=== PATIENT | male | born 1960 | race African-American/Black ===

== ENCOUNTER 2016-09-05 16:15 | Emergency (ER) | payer MEDICARE, MEDICAID ==
[2016-09-05 16:28] VITALS: BP 155/94
--- NOTE | 2016-09-05 17:10 | RAD ---
INDICATION: Progressive neck stiffness for 3 days. COMPARISON: None. TECHNIQUE: Multidetector CT images foramen magnum to lung apices without contrast. Multiplanar reformation. REPORT: Negative for cervical vertebral body or posterior element fracture at any level. Multilevel minimal vertebral endplate osteophytosis. Mild disc space narrowing at C5-C6. At C5-C6 dorsal disc osteophyte complex results in mild impression on the ventral margin of the thecal sac. Unremarkable paravertebral soft tissue contours. IMPRESSION: 1. Negative for traumatic cervical spine injury. 2. Mild degenerative spondylosis at C5-C6 resulting slight to mild central canal stenosis.
--- NOTE | 2016-09-05 17:36 | ED ---
I, Oh,Sonaina, scribed for Bala Lan MD on 09/05/16 at 1629 . Neck Pain - HPI Summary HPI Summary: This 56 y/o male presents to ED from Urgent care for gradual onset of neck stiffness since 3 days ago. Alleve doesn't give much relief. PMHx includes includes HTN and hypothyroidism. Negative recent flu-like symtpoms, sore throat , or fever. He denies any recent medication changes except for vitamin D supplement he recently started on. Primary care involves Dr. Zaidi. - History of Current Complaint Stated Complaint: NECK STIFFNESS Time Seen by Provider: 09/05/16 16:21 Hx Obtained From: Patient, Medical Records Onset/Duration Of Injury/Symptoms: Days Mechanism Of Injury: No Known Trauma Timing: Constant Onset/Duration: Gradual Onset Severity Initially: Mild Severity Currently: Moderate Location: Diffuse Character: Stiff Aggravating Factors: Nothing Alleviating Factors: Nothing Associated Signs & Symptoms: Positive: Negative - Allergies/Home Medications Allergies/Adverse Reactions: Allergies Allergy/AdvReac Type Severity Reaction Status Date / Time Lisinopril Allergy Unknown Verified 04/19/15 17:41 Reaction Details PMH/Surg Hx/FS Hx/Imm Hx Endocrine/Hematology History: Reports: Hx Thyroid Disease Cardiovascular History: Reports: Hx Hypertension - Family History Known Family History: Positive: Cardiac Disease - Social History Alcohol Use: Occasionally Hx Substance Use: No Substance Use Type: Reports: None Hx Tobacco Use: Yes Smoking Status (MU): Former Smoker Review of Systems Negative: Fever Positive: Other - neck pain Negative: Anxious, Depressed All Other Systems Reviewed And Are Negative: Yes Physical Exam Triage Information Reviewed: Yes Vital Signs On Initial Exam: Initial Vitals Temp Pulse Resp BP Pulse Ox 98 F 64 16 155/94 98 09/05/16 16:21 09/05/16 16:21 09/05/16 16:21 09/05/16 16:21 09/05/16 16:21 Vital Signs Reviewed: Yes Appearance: Positive: Well-Appearing, No Pain Distress Skin: Positive: Warm, Skin Color Reflects Adequate Perfusion, Dry Head/Face: Positive: Normal Head/Face Inspection Eyes: Positive: SOPHIA ENT: Negative: Other - negative retropharyngeal abscess Neck: Positive: Supple, Nontender, No Lymphadenopathy. Negative: Nuchal Rigidity, Enlarged Nodes @ Respiratory/Lung Sounds: Positive: Clear to Auscultation Musculoskeletal: Positive: Strength/ROM Intact Neurological: Positive: Sensory/Motor Intact, Alert, Oriented to Person Place, Time Psychiatric: Positive: Affect/Mood Appropriate AVPU Assessment: Alert Diagnostics - Vital Signs Vital Signs Temp Pulse Resp BP Pulse Ox 09/05/16 16:21 98 F 64 16 155/94 98 - Laboratory Lab Statement: Any lab studies that have been ordered have been reviewed, and results considered in the medical decision making process. - CT C-Spine CT Interpretation: No Acute Changes - 1. Negative for traumatic cervical spine injury. 2. Mild degenerative spondylosis at C5-C6 resulting slight to mild central canal stenosis. CT Interpretation Completed By: Radiologist Neck Course/Dx - Diagnoses Differential Dx/HQI/PQRI: Positive: Arthritis, Cervical Fracture, Dislocation, Sprain, Strain, Other - Primary concern for muscular sprain; however will CT for occult dislocation. Supple neck, no systemic symptoms or infectious findings with low concern for RPA, CL[place] SMITH, meningoencephalitis. 17:[address] results with the patient. When discussing his discharge instructions and prescriptions, he demanded valium while here and felt as if he deserved it because he showed up. He then told me that he is taking the public bus home and I told him it was unsafe to do so, but that if a ride showed up and could safely get him home, then I would be happy to give a dose here. He felt this was unreasonable; however, I told him it was for his safety. He cursed at me and felt that he deserved medication anyway. Provider Diagnoses: Sprain of cervical neck Discharge - Discharge Plan Condition: Stable Disposition: HOME Prescriptions: Diazepam TAB(*) [Valium TAB(*)] 10 mg PO Q8H PRN #5 tab MDD 3 PRN Reason: Muscle Spasm Patient Education Materials: Muscle Spasm (ED) Referrals: Tutu Zaidi MD [Primary Care Provider] - If Needed The documentation as recorded by the Jonathan urias Soohyun accurately reflects the service I personally performed and the decisions made by me, Bala Lan MD.
== END 2016-09-05 17:43 | disposition home or self-care (01) ==
LOC: ED 16:15
DX: M54.2 Cervicalgia (principal); Z87.891 Personal history of nicotine dependence; S13.9XXA Sprain of joints and ligaments of unspecified parts of neck, initial encounter; X58.XXXA Exposure to other specified factors, initial encounter; Y93.9 Activity, unspecified; Y92.9 Unspecified place or not applicable; Y99.9 Unspecified external cause status; Z86.79 Personal history of other diseases of the circulatory system
CPT/HCPCS: 72125; 99281

== ENCOUNTER 2019-06-21 11:10 | Emergency (ER) | payer MEDICARE, MEDICAID ==
[2019-06-21] MEDS ORDERED: Lidocaine PATCH 5%* 1 PATCH TRANSDERM ONE (14:06)
[2019-06-21] MEDS ORDERED: Diazepam TAB(*) 5 MG PO ONE (14:06)
--- NOTE | 2019-06-21 14:18 | ED ---
Neck Pain - HPI Summary HPI Summary: 59-year-old male presents with neck pain for the past 2 days. States that it feels like a stiffness to the area. He denies any fevers. No headache. No visual changes. No weakness. No numbness or tingling. no chest pain or SOB. had a cardiac test done today. Has no history of back or neck pain. Pain radiates to his shoulders. Pain is greatest on the left but is also present on the right. Has been taking Advil for his pain with limited improvement. no photophobia. no sore throat. no abdominal pain. no nausea or vomiting. - History of Current Complaint Chief Complaint: EDNeckComplaint Stated Complaint: NECK PAIN PER PT Time Seen by Provider: 06/21/19 13:48 Pain Intensity: 9 - Allergies/Home Medications Allergies/Adverse Reactions: Allergies Allergy/AdvReac Type Severity Reaction Status Date / Time lisinopril Allergy Unknown Verified 06/21/19 11:16 Reaction Details PMH/Surg Hx/FS Hx/Imm Hx Endocrine/Hematology History: Reports: Hx Thyroid Disease Cardiovascular History: Reports: Hx Angina, Hx Hypertension Infectious Disease History: No Infectious Disease History: Denies: Traveled Outside the [place] in Last 30 Days - Family History Known Family History: Positive: Cardiac Disease - Social History Alcohol Use: Weekly Hx Substance Use: No Substance Use Type: Reports: None Hx Tobacco Use: Yes Smoking Status (MU): Former Smoker Review of Systems Negative: Fever Negative: Chest Pain Negative: Shortness Of Breath Positive: Myalgia - neck pain All Other Systems Reviewed And Are Negative: Yes Physical Exam Triage Information Reviewed: Yes Vital Signs On Initial Exam: Initial Vitals Temp Pulse Resp BP Pulse Ox 97.8 F 66 14 148/86 98 06/21/19 11:14 06/21/19 11:14 06/21/19 11:14 06/21/19 11:14 06/21/19 11:14 Vital Signs Reviewed: Yes Appearance: Positive: Well-Appearing Skin: Positive: Warm, Dry Head/Face: Positive: Normal Head/Face Inspection Eyes: Positive: Normal, Conjunctiva Clear ENT: Positive: Pharynx normal Respiratory/Lung Sounds: Positive: Clear to Auscultation, Breath Sounds Present Cardiovascular: Positive: Normal, RRR Musculoskeletal: Positive: Limited @ - neck, Other - tenderness sides of neck, good pulses, sensation grossly intact Neurological: Positive: Normal Psychiatric: Positive: Normal Procedures - Sedation Patient Received Moderate/Deep Sedation with Procedure: No Diagnostics - Vital Signs Vital Signs Temp Pulse Resp BP Pulse Ox 06/21/19 13:10 98.0 F 61 16 135/80 98 06/21/19 11:14 97.8 F 66 14 148/86 98 - Laboratory Result Diagrams: 06/21/19 16:34 06/21/19 16:34 Lab Statement: Any lab studies that have been ordered have been reviewed, and results considered in the medical decision making process. - Radiology neck Radiology Interpretation Completed By: Radiologist Summary of Radiographic Findings: IMPRESSION: 1. STRAIGHTENING OF THE CERVICAL SPINE. 2. MILD TO MODERATE DEGENERATIVE DISC DISEASE. Re-Evaluation - Re-Evaluation First Eval Re-Evaluation Time: 15:45 Change: Unchanged Comment: no change after valium, will get lab work Second Eval Re-Evaluation Time: 17:07 Change: Improved Comment: feeling better Neck Course/Dx - Course Course Of Treatment: 59-year-old male presents with neck pain for the past 2 days. States that it feels a stiffness to the area. He denies any fevers. No headache. No visual changes. No weakness. No numbness or tingling. no chest pain or SOB. had a cardiac test done today. Has no history of back or neck pain. Pain radiates to his shoulders. Pain is greatest on the left but is also present on the right. Has been taking Advil for his pain. On exam tenderness greatest on sides of neck. No midline tenderness. Able to flex neck without difficulty. Has some pain with extension and rotation. Limited rotation due to pain. Neurovascular intact. X-ray shows degenerative changes. given Valium and pain unchanged. wbc normal. crp slightly elevated. vitals normal. gave norco and feeling better. will discharge with muscle relaxers and steriods. told follow up with primary. patient understand and agrees with plan. - Diagnoses Differential Dx/HQI/PQRI: Positive: Arthritis, Sprain, Strain Provider Diagnoses: Neck pain Discharge ED - Sign-Out/Discharge Documenting (check all that apply): Patient Departure - Discharge Plan Condition: Good Disposition: HOME Prescriptions: Cyclobenzaprine TAB* [Flexeril 10 MG TAB*] 10 mg PO TID PRN #15 tab PRN Reason: Pain - Moderate methylPREDNISolone [Medrol Dosepak 4 MG*] 4 mg PO .SEE KEVEN INSTRUCTION #1 packet Patient Education Materials: Neck Pain (ED) Referrals: Deysi Smart MD [Primary Care Provider] - Additional Instructions: Follow directions on package for Medrol pack Take muscle relaxers three times a day Use ibuprofen or Tylenol for pain every 6 hours ice/heat area, move as much as possible Follow up with primary within 5 days Return to ED if develop any new or worsening symptoms - Billing Disposition and Condition Condition: GOOD Disposition: Home - Attestation Statements Provider Attestation: I was available for consultation for this patient. I did not evaluate the patient or participate in any medical decision making or disposition decisions unless I am specifically named in the chart as having consulted on the patient. If I have consulted on the patient, please see my own ED note on the patient encounter. Davian Benjamin MD
[2019-06-21] MEDS ORDERED: HYDROcodone/ACETAMIN 5-325 MG* 1 TAB PO ONE (15:44)
[2019-06-21 16:47] LABS: ABS Basophils 0.1 10^3/ul (0-0.2); ABS Eosinophils 0.2 10^3/ul (0-0.6); ABS Lymphocytes 2.1 10^3/ul (1.0-4.8); ABS Monocytes 0.7 10^3/ul (0-0.8); Eosinophil % 2.9 %; Hematocrit 36 % (42-52); Hemoglobin 12.7 g/dL (14.0-18.0); Lymphocyte % 35.2 %; Mean Corpuscular HGB Conc 35 g/dL (31-36); Mean Corpuscular Hemoglobin 29 pg (27-31); Mean Corpuscular Volume 83 fL (80-94); Mean Platelet Volume 7.1 fL (7.4-10.4); Nucleated Red Blood Cells % 0.3; Platelet Count 251 10^3/uL (150-450); Red Blood Count 4.41 10^6 /uL (4.18-5.48); Red Cell Distribution Width 15 % (10-15)
[2019-06-21 17:04] LABS: Albumin 4.3 g/dL (3.2-5.2); Albumin/Globulin Ratio 1.4 (1-3); BUN/Creatinine Ratio 11.1 (8-20); C Reactive Protein 12.1 mg/L (<8.01); Calcium 9.6 mg/dL (8.6-10.3); EGFR African American 77.2 (>60); EGFR Non-African American 63.8 (>60); Globulin 3.1 g/dL (2-4); Potassium 3.9 mmol/L (3.5-5.0); Total Bilirubin 0.5 mg/dL (0.2-1.0); Total Protein 7.4 g/dL (6.4-8.9)
[2019-06-21 18:05] VITALS: BP 139/76
[2019-06-21] MEDS ORDERED: Lidocaine Patch REMOVE* 1 NOTE MISC SCH (21:00)
== END 2019-06-21 18:04 | disposition home or self-care (01) ==
LOC: ED 11:10
DX: M54.2 Cervicalgia (principal); E07.9 Disorder of thyroid, unspecified; I10 Essential (primary) hypertension; Z87.891 Personal history of nicotine dependence; Z88.8 Allergy status to other drugs, medicaments and biological substances; R94.31 Abnormal electrocardiogram [ECG] [EKG]; G47.33 Obstructive sleep apnea (adult) (pediatric)
CPT/HCPCS: 36415; 72050; 80053; 85025; 86140; 99282; A9270-GY

== ENCOUNTER 2022-05-20 02:08 | Inpatient (IN) ==
[2022-05-20] MEDS ORDERED: Ondansetron 4 mg VIAL 2 MG/ML 2 ml VIAL IV ONE (02:30)
[2022-05-20] MEDS ORDERED: Lactated Ringers 1000 ml BAG 1,000 ML IV ONE ×2 (02:30→04:03)
[2022-05-20] MEDS ORDERED: Morphine 4 MG/ML VIAL (1 ml) IV ONE (02:55)
[2022-05-20 03:01] LABS: Hematocrit 50 % (42-52); Mean Corpuscular HGB Conc 32 g/dL (31-36); Mean Corpuscular Hemoglobin 28 pg (27-31); Mean Corpuscular Volume 85 fL (80-94); Red Blood Count 5.81 10^6 /uL (4.18-5.48); Red Cell Distribution Width 16 % (10-15); White Blood Count 7.1 10^3/uL (3.5-10.8)
[2022-05-20 03:02] LABS: ABS Lymphocytes 0.7 10^3/ul (1.0-4.8); ABS Monocytes 0.9 10^3/ul (0-0.8); ABS Neutrophils 5.4 10^3/ul (1.5-7.7); Lymphocyte % 10.4 %
[2022-05-20 03:42] LABS: Giant Platelets Present; Platelet Count 200 10^3/uL (150-450)
[2022-05-20 03:57] LABS: Albumin 5.3 g/dL (3.2-5.2); Albumin/Globulin Ratio 1.4 (1-3); Calcium 9.6 mg/dL (8.6-10.3); Globulin 3.9 g/dL (2-4); Magnesium 2.3 mg/dL (1.9-2.7); Total Bilirubin 0.8 mg/dL (0.2-1.0); Total Protein 9.2 g/dL (6.4-8.9); eGFR CKD-EPI 8.7 (>60)
[2022-05-20 04:18] LABS: High Sensitivity Troponin 1 Hr 7 pg/mL (<20)
[2022-05-20 04:22] LABS: Potassium 4.8 mmol/L (3.5-5.0)
[2022-05-20 04:26] LABS: Venous Bicarbonate HCO3 17.9 mmol/L (24-28)
[2022-05-20] MEDS ORDERED: NS 0.9% 1000 ml BAG 1,000 ML IV ONE (05:56)
[2022-05-20 06:24] LABS: Calcium 8.6 mg/dL (8.6-10.3)
[2022-05-20] MEDS: Sodium Citrate/Citric Acid LIQ 15 ML UDC PO SCH ×2 (15:14→20:47)
[2022-05-20 17:01] LABS: Urine Appearance Cloudy; Urine Bilirubin Negative (Negative); Urine Blood 3+ (Negative); Urine Color Yellow; Urine Glucose Negative (Negative); Urine Ketones Negative (Negative); Urine Nitrite Negative (Negative); Urine Protein 2+(100 mg/dL) (Negative); Urine Specific Gravity 1.013 (1.002-1.030); Urine Urobilinogen Negative (Negative)
[2022-05-20 17:13] LABS: Urine Bacteria Absent (Absent); Urine Red Blood Cell 3+(>10/hpf) (Absent); Urine White Blood Cell 1+(6-10/hpf) (Absent)
[2022-05-20 17:23] LABS: Venous Bicarbonate HCO3 18.7 mmol/L (24-28)
[2022-05-20 17:24] LABS: Albumin 4.3 g/dL (3.2-5.2); Albumin/Globulin Ratio 1.4 (1-3); Calcium 8.3 mg/dL (8.6-10.3); Potassium 4.5 mmol/L (3.5-5.0); Total Bilirubin 0.5 mg/dL (0.2-1.0); Total Protein 7.3 g/dL (6.4-8.9); eGFR CKD-EPI 15.2 (>60)
[2022-05-20] MEDS: NS 0.9% 1000 ml BAG 1,000 ML IV SCH (23:26)
[2022-05-21] MEDS: NS 0.9% 1000 ml BAG 1,000 ML IV SCH (05:26)
[2022-05-21 06:37] LABS: ABS Lymphocytes 1.2 10^3/ul (1.0-4.8); ABS Monocytes 0.6 10^3/ul (0-0.8); ABS Neutrophils 2.8 10^3/ul (1.5-7.7); Eosinophil % 0.1 %; Hematocrit 40 % (42-52); Hemoglobin 13.2 g/dL (14.0-18.0); Lymphocyte % 25.6 %; Mean Corpuscular HGB Conc 33 g/dL (31-36); Mean Corpuscular Hemoglobin 28 pg (27-31); Mean Corpuscular Volume 84 fL (80-94); Mean Platelet Volume 8.1 fL (7.4-10.4); Nucleated Red Blood Cells % 0.1; Platelet Count 165 10^3/uL (150-450); Red Cell Distribution Width 16 % (10-15); White Blood Count 4.6 10^3/uL (3.5-10.8)
[2022-05-21 06:56] LABS: Calcium 8.1 mg/dL (8.6-10.3); Potassium 4.3 mmol/L (3.5-5.0); eGFR CKD-EPI 25.5 (>60)
[2022-05-21] MEDS ORDERED: Potassium Chlor 20 meq TAB.ER PO ONE (07:32)
[2022-05-21 09:23] LABS: Magnesium 2.4 mg/dL (1.9-2.7)
[2022-05-21] MEDS: Sodium Citrate/Citric Acid LIQ 15 ML UDC PO SCH ×3 (10:58→20:46)
[2022-05-21] MEDS ORDERED: Al Hydrox/Mg Hydrox/Simet LIQ 30 ML UDC PO ONE (14:13)
[2022-05-21] MEDS ORDERED: Lactated Ringers 1000 ml BAG 1,000 ML IV ONE (15:50)
[2022-05-21] MEDS ORDERED: Magic MouthWash1-BEN/MAAL/LIDO 180 ML BTL SWISH SWAL SCH (17:00)
[2022-05-22 06:08] LABS: Hematocrit 40 % (42-52); Hemoglobin 12.7 g/dL (14.0-18.0); Mean Corpuscular HGB Conc 32 g/dL (31-36); Mean Corpuscular Hemoglobin 27 pg (27-31); Mean Corpuscular Volume 84 fL (80-94); Mean Platelet Volume 7.8 fL (7.4-10.4); Platelet Count 152 10^3/uL (150-450); Red Blood Count 4.73 10^6 /uL (4.18-5.48); Red Cell Distribution Width 16 % (10-15); White Blood Count 3.8 10^3/uL (3.5-10.8)
[2022-05-22 06:18] LABS: ABS Monocytes 0.4 10^3/ul (0-0.8); ABS Neutrophils 2.4 10^3/ul (1.5-7.7); Eosinophil % 0.1 %; Lymphocyte % 25.4 %; Nucleated Red Blood Cells % 0.1
[2022-05-22 07:01] LABS: Albumin/Globulin Ratio 1.4 (1-3); Calcium 8.5 mg/dL (8.6-10.3); Globulin 2.8 g/dL (2-4); Potassium 4.9 mmol/L (3.5-5.0); Total Bilirubin 0.8 mg/dL (0.2-1.0); Total Protein 6.8 g/dL (6.4-8.9); eGFR CKD-EPI 47.7 (>60)
[2022-05-22] MEDS: Sodium Citrate/Citric Acid LIQ 15 ML UDC PO SCH (10:04)
[2022-05-22] MEDS: Sucralfate 1 gm SUSP 1 GM/10 ML UDC PO SCH ×3 (12:13→21:52)
[2022-05-22] MEDS: Nystatin SUSPENSION 100,000 UNITS/ML UDC PO SCH ×3 (14:18→21:52)
[2022-05-22] MEDS: Latanoprost 0.005% 2.5 ml BTL BOTH EYES SCH (21:52)
[2022-05-23] MEDS: Sucralfate 1 gm SUSP 1 GM/10 ML UDC PO SCH ×4 (06:29→21:39)
[2022-05-23 07:01] LABS: ABS Lymphocytes 1.1 10^3/ul (1.0-4.8); ABS Monocytes 0.4 10^3/ul (0-0.8); ABS Neutrophils 1.2 10^3/ul (1.5-7.7); Eosinophil % 0.5 %; Hematocrit 38 % (42-52); Hemoglobin 12.4 g/dL (14.0-18.0); Lymphocyte % 41.4 %; Mean Corpuscular HGB Conc 33 g/dL (31-36); Mean Corpuscular Hemoglobin 27 pg (27-31); Mean Corpuscular Volume 84 fL (80-94); Mean Platelet Volume 7.8 fL (7.4-10.4); Nucleated Red Blood Cells % 0.1; Platelet Count 138 10^3/uL (150-450); Red Blood Count 4.56 10^6 /uL (4.18-5.48); Red Cell Distribution Width 16 % (10-15); White Blood Count 2.7 10^3/uL (3.5-10.8)
[2022-05-23 07:38] LABS: Calcium 8.5 mg/dL (8.6-10.3); Potassium 4.2 mmol/L (3.5-5.0); eGFR CKD-EPI 56.8 (>60)
[2022-05-23] MEDS: Nystatin SUSPENSION 100,000 UNITS/ML UDC PO SCH ×4 (09:04→21:39)
[2022-05-23] MEDS: Latanoprost 0.005% 2.5 ml BTL BOTH EYES SCH (21:39)
[2022-05-24 03:10] VITALS: BP 146/79
[2022-05-24] MEDS ORDERED: Influenza vaccine *QUAD* *2022-23* 0.5 ML SYRINGE IM ONE (06:00)
[2022-05-24] MEDS: Sucralfate 1 gm SUSP 1 GM/10 ML UDC PO SCH (07:46)
== END 2022-05-24 08:31 | disposition home health service (06) | DRG 178 ==
LOC: ED 02:08 → EDHOLD 06:11 → SUATTDRO 06:11 → MED 22:13
PROVIDERS: ADMIT Internal Medicine; ATTEND Student in an Organized Health Care Education/Training Program